=== PATIENT | male | born 1970 | race Caucasian/White ===

== ENCOUNTER 2021-02-07 12:13 | Emergency (ER) | payer OTHER, SELFPAY ==
[2021-02-07 12:25] VITALS: BP 139/76; PULSE 89; RESP 16; TEMP 36.8; O2SAT 99
--- NOTE | 2021-02-07 13:19 | ED.EXTPRO ---
HPI - Extremity Problem General Chief complaint: Extremity Problem,Nontraumatic Stated complaint: R KNEE PAIN/SWELLING Time Seen by Provider: 02/07/21 13:07 Source: patient and RN notes reviewed Mode of arrival: ambulatory Limitations: no limitations History of Present Illness HPI Narrative: Patient presents today complaining of right knee pain x3 to 4 days with swelling. He reports tightness in the posterior knee as well. Denies numbness or tingling in the leg or foot. He reports pain at a 1/10 with sitting and 4/10 with walking. He has tried no [id number] medication or treatment prior to arrival. States he wanted to make sure he did not have a blood clot or make sure he did not need to go to the hospital for further evaluation. MD Complaint: extremity pain Related Data Home Medications Medication Instructions Recorded Confirmed No Home Medications 02/07/21 02/07/21 Allergies Allergy/AdvReac Type Severity Reaction Status Date / Time No Known Allergies Allergy Unknown Verified 02/07/21 12:55 Review of Systems Review of Systems: CONSTITUTIONAL: Denies body aches, fever, chills, or sweats. EYES: Denies visual changes, redness, or discharge. ENT: Denies rhinorrhea, congestion, sore throat, or otalgia. CARDIOVASCULAR: Denies chest pain, palpitations, or edema. RESPIRATORY: Denies cough or dyspnea. GASTROINTESTINAL: Denies abdominal pain, nausea, vomiting, or diarrhea. GENITOURINARY: Denies dysuria or hematuria. SKIN: Denies rash, itching, or wounds. MUSCULOSKELETAL: Denies back pain, or myalgia.+ Right knee pain NEUROLOGIC: Denies headache, numbness, tingling, or weakness. PSYCH: Denies depression or anxiety. PMFSH Comments At time of signature, I have reviewed and agree with nursing past medical, surgical, social and family history unless otherwise noted. Please see nursing chart for further information. There is no relevant family history pertinent to the presenting complaint Exam Narrative: GENERAL: Well-appearing, well-nourished, and in no acute distress. HEAD: Normocephalic, atraumatic. EYES: EOMI. No redness or drainage. Conjunctivae normal. ENT: Mucous membranes pink and moist. NECK: Normal AROM. CHEST: No respiratory distress. EXTREMITIES: Right knee: Mild tenderness to the lateral joint line. Mild tenderness to the popliteal fossa. Patient has full range of motion without increased pain. Normal Sahil and drawer tests. Distal sensation intact. Capillary refill normal. Pedal pulse normal. No erythema or ecchymosis. No tenderness to the calf. Dorsiflexion and plantarflexion equal and strong. No increased warmth. SKIN: Warm, dry, no rash. Capillary refill normal. Normal skin turgor. NEURO: No focal deficits. Alert and oriented x3. Gait steady. PSYCH: Normal affect. No signs of depression or anxiety. Course Vital Signs Vital signs: Vital Signs Temperature 98.2 F 02/07/21 12:25 Pulse Rate 89 02/07/21 12:25 Respiratory Rate 16 02/07/21 12:25 Blood Pressure 139/76 02/07/21 12:25 Pulse Oximetry 99 02/07/21 12:25 Temperature 98.2 F 02/07/21 12:25 Pulse Rate 89 02/07/21 12:25 Respiratory Rate 16 02/07/21 12:25 Blood Pressure 139/76 02/07/21 12:25 Pulse Oximetry 99 02/07/21 12:25 Reviewed. Pt has been instructed to follow up with his PCP regarding his elevated blood pressure today. MDM - Extremity (Nontraumatic) Differential Diagnosis Differential diagnosis: Likely other (Osteoarthritis, effusion, ligamental injury, meniscus injury) Critical Care Time Critical Care Time Critical Care Time: No Discharge Plan Discharge Clinical Impression: Knee pain, right Qualifiers: Chronicity: acute Qualified Code(s): M25.561 - Pain in right knee Patient Disposition: Home, Self-Care Condition: Stable Instructions: Knee Pain (ED) Additional Instructions: Take an antiinflammatory such as Aleve or Ibuprofen for pain if needed. Follow up w
== END 2021-02-07 13:31 | disposition home or self-care (01) ==
PROVIDERS: Emergency Provider Nurse Practitioner
DX: M25.561 Pain in right knee (principal)
CPT/HCPCS: 99202; G0463